=== PATIENT | male | born 1950 | race Two or more races ===

== ENCOUNTER 2025-08-17 10:00 | Outpatient (CLI) | payer MEDICARE ==
[~2025-08-17] VITALS: Ht 175.3 cm; Wt 93.9 kg
[2025-08-17] MEDS: REGADENOSON 0.4 MG/5 ML SYRG IV ONE ×2 (09:44→10:45)
--- NOTE | 2025-08-20 08:28 | DVHSR ---
APPROVED REPORT Exam: Nuclear Stress Test BMI: 0 Stress Test Details Stress Test: Pharmacologic stress testing performed using 0.4 mg of regadenoson per 5 mL given IV over 10 seconds. HR Resting HR: 86 bpm Max Heart Rate (APMHR): 147.353448 bpm Max HR Achieved: 99 bpm Target HR (85% APMHR): 124.330571 bpm % of APMHR: 67.35 Recovery HR: 80 bpm BP Resting BP: 158/99 mmHg Recovery BP: 153/95 mmHg ECG Resting ECG: Sinus Rhythm Clinical Reason for Termination: Completed protocol Nurse Comments Recieved pt. from [employer]. A/Ox4 on RA. Connected to data coordinator, VS stable. PIV flushes well. Reviewed POC. Pt. verbalized understanding of procedure including risks and side effects, agrees for stress testing. Lexiscan stress test performed per protocol. [employer] tech administered Cardiolite. Pt. tolerated well. Pt. stable, no change on exam. VS returned to baseline. Transferred to [employer] via wheelchair w/ tech. 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 Time of rest injection: 09:25 Date: 08/17/2025 Time of rest imagin:25 Date: 08/17/2025 Administration Route: IV Administration Site: Right Hand Pharmacologic Stress Pharmacologic stress test was performed by injecting Regadenoson 0.4 mg IV push followed by the intravenous injection of 30.7 mCi of Tc-99m Sestamibi. Time of stress injection: 10:45 Date: 08/17/2025 Time of stress imagin:45 Date: 08/17/2025 Administration Route: IV Administration Site: Right Hand Gated Stress SPECT was performed 60 minutes after stress injection. The images were gated to evaluate regional wall motion and calculate left ventricular ejection fraction. Stress only was performed in the Supine position. 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
== END 2025-08-17 17:00 | disposition home or self-care (01) ==
LOC: XYW 10:00
PROVIDERS: ATTEND Specialist
DX: I25.10 Atherosclerotic heart disease of native coronary artery without angina pectoris (principal); R07.9 Chest pain, unspecified; R06.02 Shortness of breath
CPT/HCPCS: 78452; 93017; A9500; J2785